=== PATIENT | male | born 1985 | race Two or more races ===

== ENCOUNTER 2023-02-27 19:44 | Emergency (ER) | payer MEDICAID, OTHER ==
[~2023-02-27] VITALS: Ht 175.3 cm; Wt 78.5 kg
[2023-02-27 20:28] VITALS: RESP 16; O2SAT 97
[2023-02-27] MEDS ORDERED: BETAPOW TOP (21:40)
[2023-02-27] MEDS ORDERED: HYDR25CA PO (21:40)
[2023-02-27] MEDS ORDERED: cefTRIAXone SOD 1,000 MG VL IM ONE (21:45)
[2023-02-27] MEDS ORDERED: methylPREDNISolone SOD SUCC 40 MG/ML VL IM ONE (21:45)
[2023-02-27] MEDS ORDERED: diphenhdrAMINE HCL 50 MG/1 ML VL IM ONE (21:45)
[2023-02-27 22:49] VITALS: BP 116/76; PULSE 92; TEMP 98.4
== END 2023-02-27 22:51 | disposition home or self-care (01) ==
LOC: ER 19:44
DX: L30.9 Dermatitis, unspecified (principal)
CPT/HCPCS: 96372; 99284; J0696; J1200; J2920